=== PATIENT | female | born 1940 | race Caucasian/White ===

== ENCOUNTER 2017-05-01 15:12 | Outpatient (CLI) | payer MEDICARE ==
--- NOTE | 2017-05-01 22:02 | RAD ---
RIGHT ANKLE 3 VIEWS: DATE: 05/01/17. FINDINGS: An old fracture of the medial malleolar tip is noted. There is soft tissue swelling around the join t, both medially and laterally today. I could not detect any definite acute fracture. The articula r surfaces are smooth and the ankle joint is normal in width. A large calcaneal spur was seen. The re may have been old trauma to the dorsum of the talus anteriorly, (nonarticular part). IMPRESSION: Old medial malleolar injury. Soft tissue swelling, but no acute bony finding. POS: HOME
== END 2017-05-01 15:13 | disposition home or self-care (01) ==
LOC: BURRAD 15:12
PROVIDERS: ATTEND Family Medicine
DX: M25.571 Pain in right ankle and joints of right foot (principal); G89.29 Other chronic pain

== ENCOUNTER 2017-09-13 15:01 | Outpatient (CLI) | payer MEDICARE ==
--- NOTE | 2017-09-13 15:52 | RAD ---
CHEST TWO VIEWS: History: COPD. Chest pain. Comparison: 12-06-11 FINDINGS: Cardiac silhouette and pulmonary vasculature are unremarkable. Lungs are hyperinflated. Mediastinum i s midline. Subtle well defined parenchymal opacity projects over the right upper lobe. There is also mild bibasilar atelectasis. No evidence of pneumothorax or significant pleural fluid. IMPRESSION: Right upper lobe infiltrate. Clinical correlation regarding other signs and symptoms of right upper l obe pneumonitis is required. Continued radiographic follow up after medical treatment is suggested to evaluate for clearing versus progression. POS: [facility]
== END 2017-09-13 15:02 | disposition home or self-care (01) ==
LOC: BURRAD 15:01
PROVIDERS: ATTEND Family Medicine
DX: J44.1 Chronic obstructive pulmonary disease with (acute) exacerbation (principal); J11.1 Influenza due to unidentified influenza virus with other respiratory manifestations; J90 Pleural effusion, not elsewhere classified
CPT/HCPCS: 71020

== ENCOUNTER 2021-03-24 13:00 | Emergency (ER) | payer MEDICARE ==
[2021-03-24] MEDS ORDERED: Fentanyl 100 MCG/2 ML VIAL ONE (13:19)
[2021-03-24] MEDS ORDERED: Ondansetron PF 4 MG/2 ML Vial ONE (13:19)
[2021-03-24] MEDS ORDERED: Aspirin Chewable 81 MG TAB ONE (13:19)
[2021-03-24 13:28] LABS: #Basophils 0.1 thou/uL (0.0-0.2); #Eosinphils 0.1 thou/uL (0.0-0.7); #Lymphocytes 2.4 thou/uL (1.20-3.40); #Monocytes 0.5 thou/uL (0.11-0.59); #Neutrophils 7.4 thou/uL (1.40-6.50); %Basophils 0.8 % (0.0-1.0); %Lymphocytes 22.6 % (21.0-51.0); %Neutrophils 70.6 % (42.0-75.0); Hemoglobin 12.2 g/dL (12.0-16.0); Mean Corpuscular HGB CONC 33.4 g/dL (32.0-36.0); Mean Corpuscular Hemoglobin 30.8 pg (27.0-31.0); Mean Corpuscular Volume 92.1 fL (78.0-98.0); Mean Platelet Volume 5.3 fL (7.4-10.4); Platelet Count 246 thou/uL (130-400); RBC Distribution Width 12.4 % (11.5-14.5); Red Blood Cell (RBC) Count 3.96 mill/uL (4.20-5.40); White Blood Cell (WBC) Count 10.4 thou/uL (4.8-10.8)
[2021-03-24 13:45] LABS: ALT (SGPT) 17 U/L (8-55); AST (SGOT) 19 U/L (5-34); Albumin 4.3 g/dL (3.4-4.8); Alkaline Phosphatase 93 U/L (40-110); Anion Gap 19 mmol/L (10-20); BUN (Urea Nitrogen) 25 mg/dL (9.8-20.1); Bilirubin, Total 0.6 mg/dL (0.2-1.2); Calc. Creatinine Clearance 0 mL/min (70-130); Calcium 9.9 mg/dL (7.8-10.44); Carbon Dioxide 24 mmol/L (23-31); Chloride 98 mmol/L (98-107); Globulin 3.6 g/dL (2.4-3.5); Glucose 125 mg/dL (83-110); Potassium 4.2 mmol/L (3.5-5.1); Protein, Total 7.9 g/dL (5.8-8.1); Sodium 137 mmol/L (136-145)
== END 2021-03-24 14:43 | disposition short-term general hospital (02) ==
LOC: BURERS 13:00
DX: I24.9 Acute ischemic heart disease, unspecified (principal); J44.9 Chronic obstructive pulmonary disease, unspecified; I10 Essential (primary) hypertension; G47.30 Sleep apnea, unspecified; K21.9 Gastro-esophageal reflux disease without esophagitis; Z87.891 Personal history of nicotine dependence; Z79.899 Other long term (current) drug therapy; Z79.82 Long term (current) use of aspirin
CPT/HCPCS: 71045; 80053; 83880; 84484; 85025; 93005; 94760; 96374; 96375; J2405; J3010

== ENCOUNTER 2022-03-19 23:51 | Emergency (ER) | payer MEDICARE ==
[2022-03-19] MEDS ORDERED: Iopamidol 370 76% 100 ML VIAL FS ONE (23:52)
[2022-03-20] MEDS ORDERED: Ondansetron PF 4 MG/2 ML Vial ONE ×3 (00:31→03:18)
[2022-03-20] MEDS ORDERED: Fentanyl 100 MCG/2 ML VIAL ONE ×3 (00:31→03:18)
[2022-03-20 01:10] LABS: #Basophils 0.1 thou/uL (0.0-0.2); #Eosinphils 0.1 thou/uL (0.0-0.7); #Lymphocytes 2.1 thou/uL (1.20-3.40); #Monocytes 0.7 thou/uL (0.11-0.59); #Neutrophils 7.9 thou/uL (1.40-6.50); %Basophils 0.7 % (0.0-1.0); %Eosinophils 0.9 % (0.0-10.0); %Monocytes 6.4 % (0.0-10.0); Hemoglobin 12.1 g/dL (12.0-16.0); Mean Corpuscular HGB CONC 34.6 g/dL (32.0-36.0); Mean Corpuscular Volume 89.6 fL (78.0-98.0); Mean Platelet Volume 5.3 fL (7.4-10.4); Platelet Count 248 thou/uL (130-400); RBC Distribution Width 12.9 % (11.5-14.5); White Blood Cell (WBC) Count 10.8 thou/uL (4.8-10.8)
[2022-03-20 01:20] LABS: Bilirubin Negative (Negative); Blood, Urine Negative (Negative); Clarity Clear (Clear); Glucose, Urine (Dipstick) Negative (Negative); Ketone, Urine Negative (Negative); Leukocyte Small (Negative); Nitrite Negative (Negative); Protein, Urine (Dipstick) Negative (Neg-Trace); pH, Urine 8.5 (5.0-9.0)
[2022-03-20 01:22] LABS: Bacteria/HPF Rare-Few HPF (None Seen); RBC/HPF None Seen HPF (0-3); Squamous Epithelial None Seen HPF (0-3); WBC/HPF 0-3 HPF (0-3)
[2022-03-20 01:44] LABS: ALT (SGPT) 24 U/L (8-55); AST (SGOT) 24 U/L (5-34); Albumin 4.1 g/dL (3.4-4.8); Alkaline Phosphatase 80 U/L (40-110); Anion Gap 17 mmol/L (10-20); BUN (Urea Nitrogen) 11 mg/dL (9.8-20.1); Bilirubin, Total 0.7 mg/dL (0.2-1.2); Calc. Creatinine Clearance 0 mL/min (70-130); Calcium 9.9 mg/dL (7.8-10.44); Carbon Dioxide 28 mmol/L (23-31); Chloride 95 mmol/L (98-107); Estimated GFR 61; Globulin 3.2 g/dL (2.4-3.5); Glucose 104 mg/dL (83-110); Lipase 35 U/L (8-78); Protein, Total 7.3 g/dL (5.8-8.1); Sodium 136 mmol/L (136-145)
[2022-03-20] MEDS ORDERED: metroNIDAZOLE 500 MG/100 ML BAG ONE (02:23)
[2022-03-20] MEDS ORDERED: Cefepime 2 GM VIAL ONE (02:23)
== END 2022-03-20 04:15 | disposition short-term general hospital (02) ==
LOC: BURERS 23:51
DX: K56.609 Unspecified intestinal obstruction, unspecified as to partial versus complete obstruction (principal); J44.9 Chronic obstructive pulmonary disease, unspecified; I10 Essential (primary) hypertension; E78.5 Hyperlipidemia, unspecified; G47.30 Sleep apnea, unspecified; Z87.891 Personal history of nicotine dependence
CPT/HCPCS: 74177; 80053; 81003; 81015; 83690; 85025; 94760; 96374; 96375; 96376; J0692; J2405; J3010; Q9967

== ENCOUNTER 2022-04-15 22:40 | Inpatient (IN) | payer MEDICARE ==
[2022-04-15] MEDS ORDERED: Acetaminophen 325 MG TAB PO PRN (23:53)
[2022-04-15] MEDS ORDERED: Ondansetron ODT 4 MG TAB PO PRN (23:54)
[2022-04-15] MEDS ORDERED: Acetaminophen 325 MG Suppository PR PRN (23:54)
[2022-04-16] MEDS ORDERED: HYOSCYAMINE SULFATE 0.375 MG PO PRN ×2 (06:49→07:06)
[2022-04-16] MEDS ORDERED: Loperamide HCl 2 MG CAP PO PRN (06:49)
[2022-04-16] MEDS ORDERED: ONDANSETRON 8 MG PO PRN (06:49)
[2022-04-16] MEDS ORDERED: Ondansetron ODT 4 MG TAB PO PRN (07:11)
[2022-04-16] MEDS ORDERED: MOMETASONE FUROATE TP SCH (09:00)
[2022-04-16] MEDS ORDERED: FISH OIL CA PO SCH (09:00)
[2022-04-16] MEDS ORDERED: CALCIUM CARBONATE 400 MG PO SCH (09:00)
[2022-04-16] MEDS ORDERED: OMEGA PO SCH (09:00)
[2022-04-16] MEDS ORDERED: DHA PO SCH (09:00)
[2022-04-16] MEDS ORDERED: [UNRECOGNIZED DRUG - OTHER] PO SCH (09:00)
[2022-04-16] MEDS ORDERED: Non-Formulary Item 1 EACH (Lactobacillus Rhamnosus Gg [Culturelle] 1 CAPSULE Capsule) PO SCH (09:00)
[2022-04-16] MEDS ORDERED: Cholecalciferol 1,000 UNITS (25 MCG) TAB PO SCH (09:00)
[2022-04-16] MEDS ORDERED: Non-Formulary Item 1 EACH (Multivitamin [Multivitamin] 1 EACH Tablet) PO SCH (09:00)
[2022-04-16] MEDS ORDERED: EPA PO SCH (09:00)
[2022-04-16] MEDS ORDERED: [UNRECOGNIZED DRUG - OTHER] TP SCH (09:00)
[2022-04-16] MEDS ORDERED: DIMETHICONE TP SCH (09:00)
[2022-04-16] MEDS: Fish Oil 1,000 MG CAP PO SCH (09:56)
[2022-04-16] MEDS: Calcium Carbonate 500 MG ChewTAB PO SCH (09:56)
[2022-04-16] MEDS: Cholecalciferol 1,000 UNITS (25 MCG) TAB PO SCH (09:57)
[2022-04-16] MEDS: Multivit, Therapeutic 1 TAB PO SCH (09:57)
[2022-04-16] MEDS: Lisinopril 10 MG TAB PO SCH (09:57)
[2022-04-16] MEDS: Saccharomyces boulardii 250 MG CAP PO SCH (09:58)
[2022-04-16] MEDS: PATIENT'S HOME MEDICATION INH SCH ×2 (11:59→20:34)
[2022-04-16] MEDS: MOMETASONE FUROATE DT SCH ×2 (11:59→20:33)
[2022-04-16] MEDS: DIMETHICONE DT SCH ×2 (11:59→20:33)
[2022-04-16] MEDS ORDERED: LETROZOLE 2.5 MG PO SCH (21:00)
[2022-04-17] MEDS: Multivit, Therapeutic 1 TAB PO SCH (09:20)
[2022-04-17] MEDS: Calcium Carbonate 500 MG ChewTAB PO SCH (09:20)
[2022-04-17] MEDS: Lisinopril 10 MG TAB PO SCH (09:20)
[2022-04-17] MEDS: Fish Oil 1,000 MG CAP PO SCH (09:20)
[2022-04-17] MEDS: Cholecalciferol 1,000 UNITS (25 MCG) TAB PO SCH (09:21)
[2022-04-17] MEDS: Saccharomyces boulardii 250 MG CAP PO SCH (09:21)
[2022-04-17] MEDS: PATIENT'S HOME MEDICATION INH SCH ×2 (09:23→20:45)
[2022-04-17] MEDS: MOMETASONE FUROATE DT SCH ×2 (09:28→20:43)
[2022-04-17] MEDS: DIMETHICONE DT SCH ×2 (09:28→20:43)
[2022-04-18] MEDS: Lisinopril 10 MG TAB PO SCH (09:00)
[2022-04-18] MEDS: Fish Oil 1,000 MG CAP PO SCH (09:01)
[2022-04-18] MEDS: Cholecalciferol 1,000 UNITS (25 MCG) TAB PO SCH (09:01)
[2022-04-18] MEDS: Calcium Carbonate 500 MG ChewTAB PO SCH (09:01)
[2022-04-18] MEDS: Saccharomyces boulardii 250 MG CAP PO SCH (09:01)
[2022-04-18] MEDS: Multivit, Therapeutic 1 TAB PO SCH (09:01)
[2022-04-18] MEDS: MOMETASONE FUROATE DT SCH ×2 (09:02→21:18)
[2022-04-18] MEDS: DIMETHICONE DT SCH ×2 (09:02→21:18)
[2022-04-18] MEDS: PATIENT'S HOME MEDICATION INH SCH ×2 (09:06→21:19)
[2022-04-19] MEDS: PATIENT'S HOME MEDICATION INH SCH (09:33)
[2022-04-19] MEDS: Multivit, Therapeutic 1 TAB PO SCH (09:33)
[2022-04-19] MEDS: Lisinopril 10 MG TAB PO SCH (09:34)
[2022-04-19] MEDS: Fish Oil 1,000 MG CAP PO SCH (09:34)
[2022-04-19] MEDS: Cholecalciferol 1,000 UNITS (25 MCG) TAB PO SCH (09:35)
[2022-04-19] MEDS: DIMETHICONE DT SCH (09:35)
[2022-04-19] MEDS: Calcium Carbonate 500 MG ChewTAB PO SCH (09:35)
[2022-04-19] MEDS: Saccharomyces boulardii 250 MG CAP PO SCH (09:35)
[2022-04-19] MEDS: MOMETASONE FUROATE DT SCH (09:35)
[2022-04-19] MEDS: SALMETEROL INH SCH (21:05)
[2022-04-19] MEDS: FLUTICASONE INH SCH (21:05)
[2022-04-19] MEDS: Letrozole 2.5 MG TAB PO SCH (21:06)
[2022-04-20] MEDS: Multivit, Therapeutic 1 TAB PO SCH (09:44)
[2022-04-20] MEDS: Lisinopril 10 MG TAB PO SCH (09:44)
[2022-04-20] MEDS: Calcium Carbonate 500 MG ChewTAB PO SCH (09:45)
[2022-04-20] MEDS: Cholecalciferol 1,000 UNITS (25 MCG) TAB PO SCH (09:45)
[2022-04-20] MEDS: Saccharomyces boulardii 250 MG CAP PO SCH (09:45)
[2022-04-20] MEDS: Fish Oil 1,000 MG CAP PO SCH (09:45)
[2022-04-20] MEDS: FLUTICASONE INH SCH ×2 (09:51→22:07)
[2022-04-20] MEDS: SALMETEROL INH SCH ×2 (09:51→22:07)
[2022-04-20] MEDS: Letrozole 2.5 MG TAB PO SCH (22:07)
[2022-04-21] MEDS: Fish Oil 1,000 MG CAP PO SCH (08:47)
[2022-04-21] MEDS: Multivit, Therapeutic 1 TAB PO SCH (08:48)
[2022-04-21] MEDS: Calcium Carbonate 500 MG ChewTAB PO SCH (08:48)
[2022-04-21] MEDS: Saccharomyces boulardii 250 MG CAP PO SCH (08:49)
[2022-04-21] MEDS: Cholecalciferol 1,000 UNITS (25 MCG) TAB PO SCH (08:49)
[2022-04-21] MEDS: Lisinopril 10 MG TAB PO SCH (08:51)
[2022-04-21] MEDS: FLUTICASONE INH SCH ×2 (08:55→19:59)
[2022-04-21] MEDS: SALMETEROL INH SCH ×2 (08:55→19:59)
[2022-04-21] MEDS: Letrozole 2.5 MG TAB PO SCH (20:03)
[2022-04-22 04:41] VITALS: TEMP 98.5
[2022-04-22] MEDS: FLUTICASONE INH SCH (08:40)
[2022-04-22] MEDS: SALMETEROL INH SCH (08:40)
[2022-04-22] MEDS: Calcium Carbonate 500 MG ChewTAB PO SCH (08:41)
[2022-04-22] MEDS: Fish Oil 1,000 MG CAP PO SCH (08:41)
[2022-04-22] MEDS: Lisinopril 10 MG TAB PO SCH (08:41)
[2022-04-22] MEDS: Saccharomyces boulardii 250 MG CAP PO SCH (08:41)
[2022-04-22] MEDS: Multivit, Therapeutic 1 TAB PO SCH (08:41)
[2022-04-22] MEDS: Cholecalciferol 1,000 UNITS (25 MCG) TAB PO SCH (08:45)
[2022-04-22 08:47] VITALS: BP 151/85
== END 2022-04-22 14:30 | disposition home or self-care (01) | DRG 948 ==
LOC: BURMED 22:40
PROVIDERS: ADMIT Family Medicine; ATTEND Family Medicine
PROC: 5A09357 Assistance with Respiratory Ventilation, Less than 24 Consecutive Hours, Continuous Positive Airway Pressure (ICD-10-PCS; principal; 2022-04-18)
DX: R53.81 Other malaise (principal); C78.6 Secondary malignant neoplasm of retroperitoneum and peritoneum; R53.1 Weakness; D64.9 Anemia, unspecified; K21.9 Gastro-esophageal reflux disease without esophagitis; E78.5 Hyperlipidemia, unspecified; E66.9 Obesity, unspecified; G47.33 Obstructive sleep apnea (adult) (pediatric); M85.80 Other specified disorders of bone density and structure, unspecified site; C44.91 Basal cell carcinoma of skin, unspecified; J30.2 Other seasonal allergic rhinitis; J44.9 Chronic obstructive pulmonary disease, unspecified; Z20.822 Contact with and (suspected) exposure to COVID-19; D35.00 Benign neoplasm of unspecified adrenal gland; Z96.1 Presence of intraocular lens; Z90.89 Acquired absence of other organs; Z90.49 Acquired absence of other specified parts of digestive tract; Z98.890 Other specified postprocedural states; Z90.721 Acquired absence of ovaries, unilateral; Z68.30 Body mass index [BMI] 30.0-30.9, adult; Z98.49 Cataract extraction status, unspecified eye; Z91.040 Latex allergy status; Z80.0 Family history of malignant neoplasm of digestive organs; Z79.899 Other long term (current) drug therapy; Z88.5 Allergy status to narcotic agent; Z88.8 Allergy status to other drugs, medicaments and biological substances
CPT/HCPCS: U0003; U0005